=== PATIENT | female | born 1995 | race American Indian/Alaskan Native ===

== ENCOUNTER 2016-10-13 16:52 | Emergency (ER) | payer OTHER ==
[2016-10-13 17:12] VITALS: BP 122/86
[2016-10-13 18:08] LABS: Bacteria,Urine 2+ /HPF (Negative); Bilirubin,Urine NEG (Negative); Blood,Urine NEG (Negative); Ketones,Urine TR mg/dL (Negative); Leukocyte Esterase,Urine MOD (Negative); Mucus,Urine 3+ /HPF; Nitrite,Urine NEG (Negative)
[2016-10-13 18:11] LABS: Protein,Urine >500 mg/dL (Negative)
[2016-10-13 18:11] LABS: Alanine Aminotransferase 5 units/L (7-56); Albumin 4.4 g/dL (3.9-5); Alkaline Phosphatase 54 units/L (35-129); Anion Gap 21 mmol/L; BUN/Creatinine Ratio 8.33; Blood Urea Nitrogen 5 mg/dL (7-17); Calcium 9.5 mg/dL (8.4-10.2); Carbon Dioxide 21 mmol/L (22-30); Chloride 98.3 mmol/L (98-107); Glucose 65 mg/dL (65-100); Potassium 3.9 mmol/L (3.6-5.0); Sodium 136 mmol/L (137-145); Total Protein 8.6 g/dL (6.3-8.2)
[2016-10-13 18:22] LABS: Basophils % (Auto) 0.5 % (0.0-1.8); Eosinophils % (Auto) 0.4 % (0.0-4.3); Hematocrit 38.4 % (30.3-42.9); Hemoglobin 12.4 gm/dl (10.1-14.3); Mean Corpuscular HGB Conc 32 % (30-34); Mean Corpuscular Hemoglobin 29 pg (28-32); Mean Corpuscular Volume 91 fl (79-97); Platelet Count 298 K/mm3 (140-440); Red Blood Count 4.24 M/mm3 (3.65-5.03); Red Cell Distribution Width 15.8 % (13.2-15.2); White Blood Count 7.2 K/mm3 (4.5-11.0)
--- NOTE | 2016-11-03 15:10 | ED Elopement Review ---
ED Pt Elopement review - Results review Lab results: Laboratory Tests 10/13/16 10/13/16 10/13/16 17:25 17:40 17:40 WBC 7.2 RBC 4.24 Hgb 12.4 Hct 38.4 MCV 91 MCH 29 MCHC 32 RDW 15.8 H Plt Count 298 Lymph % (Auto) 11.7 L [place] % (Auto) 9.0 H Eos % (Auto) 0.4 Baso % (Auto) 0.5 Lymph # 0.8 L [place] # 0.7 Eos # 0.0 Baso # 0.0 Seg Neutrophils % 78.4 H Seg Neutrophils # 5.7 Sodium Potassium Chloride Carbon Dioxide Anion Gap BUN Creatinine Estimated GFR BUN/Creatinine Ratio Glucose Calcium Total Bilirubin AST ALT Alkaline Phosphatase Total Protein Albumin Albumin/Globulin Ratio HCG, Quant 487176 H Urine Color Natasha Urine Turbidity Cloudy Urine pH 6.0 Ur Specific [place] 1.027 Urine Protein >500 Urine Glucose (UA) Neg Urine Ketones Tr Urine Blood Neg Urine Nitrite Neg Urine Bilirubin Neg Urine Urobilinogen 2.0 Ur Leukocyte Esterase Mod Urine WBC (Auto) 70.0 H Urine RBC (Auto) 13.0 U Epithel Cells (Auto) 23.0 H Urine Bacteria (Auto) 2+ Urine Mucus 3+ Blood Type 10/13/16 10/13/16 17:40 17:40 WBC RBC Hgb Hct MCV MCH MCHC RDW Plt Count Lymph % (Auto) [place] % (Auto) Eos % (Auto) Baso % (Auto) Lymph # [place] # Eos # Baso # Seg Neutrophils % Seg Neutrophils # Sodium 136 L Potassium 3.9 Chloride 98.3 Carbon Dioxide 21 L Anion Gap 21 BUN 5 L Creatinine 0.6 L Estimated GFR > 60 BUN/Creatinine Ratio 8.33 Glucose 65 Calcium 9.5 Total Bilirubin 0.70 AST 17 ALT 5 L Alkaline Phosphatase 54 Total Protein 8.6 H Albumin 4.4 Albumin/Globulin Ratio 1.0 HCG, Quant Urine Color Urine Turbidity Urine pH Ur Specific [place] Urine Protein Urine Glucose (UA) Urine Ketones Urine Blood Urine Nitrite Urine Bilirubin Urine Urobilinogen Ur Leukocyte Esterase Urine WBC (Auto) Urine RBC (Auto) U Epithel Cells (Auto) Urine Bacteria (Auto) Urine Mucus Blood Type O POSITIVE - Call Back decision Pt Call Back Decision: Pt to F/U with PMD
== END 2016-10-14 03:10 | disposition left against medical advice (07) ==
LOC: ED 16:52
DX: O26.851 Spotting complicating pregnancy, first trimester (principal); Z3A.01 Less than 8 weeks gestation of pregnancy; Z53.21 Procedure and treatment not carried out due to patient leaving prior to being seen by health care provider
CPT/HCPCS: 36415; 80053; 81001; 84702; 85025; 86900; 86901